=== PATIENT | male | born 1970 | race Caucasian/White ===

== ENCOUNTER 2021-07-03 06:50 | Day surgery (SDC) | payer OTHER ==
[~2021-07-03] VITALS: Ht 180.3 cm; Wt 88.4 kg
[~2021-07-03 06:50] MED LIST: ALBU90OI INH; Ativan0.5 MG PO; CELE200 PO; Cyclobenzaprine5 MG PO; FLUO10 PO; IBUP600 PO; METO25ER PO; TAMS.4ER PO
== END 2021-07-03 08:50 | disposition home or self-care (01) ==
LOC: ORSCSDS 06:50
PROVIDERS: Surgery
PROC: 0DBL8ZX Excision of Transverse Colon, Via Natural or Artificial Opening Endoscopic, Diagnostic (ICD-10-PCS; principal; 2021-07-03 08:00)
DX: Z12.11 Encounter for screening for malignant neoplasm of colon (principal); D12.3 Benign neoplasm of transverse colon; I10 Essential (primary) hypertension; E78.5 Hyperlipidemia, unspecified; F41.9 Anxiety disorder, unspecified; F32.A Depression, unspecified; Z79.899 Other long term (current) drug therapy
CPT/HCPCS: 88305; J2704; J7120